=== PATIENT | female | born 1960 | race Two or more races ===

== ENCOUNTER 2018-06-08 12:13 | Emergency (ER) | payer SELFPAY ==
[2018-06-08] MEDS ORDERED: DIPHENHYDRAMINE HCL 25 MG CAPSULE PO ONE (14:16)
[2018-06-08] MEDS ORDERED: METOCLOPRAMIDE HCL 10 MG TABLET PO ONE (14:16)
[2018-06-08] MEDS ORDERED: MECLIZINE HCL 25 MG TABLET PO ONE (14:56)
[2018-06-08] MEDS ORDERED: NORMAL SALINE 1000 ML 1,000 ML IV ONE (14:56)
--- NOTE | 2018-06-08 15:00 | ER Document Report ---
ED General - General Chief Complaint: High Blood Pressure Stated Complaint: BLOOD PRESSURE ISSUES Time Seen by Provider: 06/08/18 14:15 Mode of Arrival: Ambulatory Information source: Patient, Relative Notes: 57-year-old female with hypertension who speaks Mandarin only presents via private vehicle with concerns for fluctuating blood pressure reading. A Mandarin shoe planner has been used to obtain history by myself and my nurse. Patient states that yesterday she had an elevated blood pressure reading of 175/90. She denies any headache yesterday chest pain, shortness of breath. She states that she takes metoprolol and valsartan and doubled her dose today because of the elevated blood pressure. Now she is complaining of feeling dizzy and lightheaded. Patient denies any recent illness, fever, chills, nausea, vomiting, chest pain, shortness of breath, abdominal pain, weakness or slurred speech. TRAVEL OUTSIDE OF THE [place] IN LAST 30 DAYS: No - HPI Onset: Other Quality of pain: No pain Associated symptoms: Other - Dizziness. denies: Chest pain, Headache, Nausea, Vomiting, Shortness of breath Exacerbated by: Denies Relieved by: Denies Similar symptoms previously: Yes Recently seen / treated by doctor: No - Related Data Allergies/Adverse Reactions: No Known Allergies Allergy (Unverified 06/08/18 12:28) Past Medical History - General Information source: Patient - Social History Smoking Status: Never Smoker Frequency of alcohol use: None Drug Abuse: None Lives with: Family Family History: Reviewed & Not Pertinent Patient has suicidal ideation: No Patient has homicidal ideation: No - Past Medical History Cardiac Medical History: Reports: Hx Hypertension Review of Systems - Review of Systems Notes: REVIEW OF SYSTEMS: CONSTITUTIONAL : Denies fever, chills, or sweats. Denies recent illness. Denies weight loss, recent hospitalizations. EENT: Denies visual changes, eye pain. Denies sore throat, oral lesions, difficulty swallowing. CARDIOVASCULAR: Denies chest pain. Denies palpitations. Denies lower extremity edema. RESPIRATORY: Denies cough. Denies shortness of breath, wheezing. GASTROINTESTINAL: Denies abdominal pain or distention. Denies nausea, vomiting, or diarrhea. Denies blood in vomitus, stools, or per rectum. Denies black, tarry stools. Denies constipation. GENITOURINARY: Denies difficulty urinating, painful urination, frequency, blood in urine, or vaginal discharge. MUSCULOSKELETAL: Denies back or neck pain or stiffness. Denies joint pain or swelling. SKIN: Denies rash, lesions or sores. HEMATOLOGIC : Denies easy bruising or bleeding. LYMPHATIC: Denies swollen glands. NEUROLOGICAL: Denies confusion or altered mental status. Denies loss of consciousness. Denies headache. Denies weakness or paralysis. Denies problems difficulty with ambulation, slurred speech. Denies sensory loss, numbness, or tingling. Denies seizures. PSYCHIATRIC: Denies anxiety or stress. Denies depression, suicidal ideation, or homicidal ideation. Denies visual or auditory hallucinations. Physical Exam - Vital signs Vitals: Temp Pulse Resp BP Pulse Ox 98.1 F 57 L 16 125/63 95 06/08/18 12:38 06/08/18 12:38 06/08/18 12:38 06/08/18 12:38 06/08/18 12:38 - Notes Notes: PHYSICAL EXAMINATION: GENERAL: Well-appearing, well-nourished and in no acute distress. HEAD: Atraumatic, normocephalic. EYES: Pupils equal round and reactive to light, extraocular movements intact, conjunctiva are normal. ENT: Nares patent, oropharynx clear without exudates. Moist mucous membranes. TMs normal bilaterally NECK: Normal range of motion, supple without lymphadenopathy LUNGS: Breath sounds clear to auscultation bilaterally and equal. No wheezes rales or rhonchi. HEART: Regular rate and rhythm without murmurs ABDOMEN: Soft, nontender, nondistended abdomen. No guarding, no rebound. No masses appreciated. Female : deferred Musculoskeletal: Normal range of motion, no pitting or edema. No cyanosis. NEUROLOGICAL: Cranial nerves grossly intact. Normal speech, normal gait. Normal sensory, motor exams. NIH 0 PSYCH: Normal mood, normal affect. SKIN: Warm, Dry, normal turgor, no rashes or lesions noted. Course - Re-evaluation Re-evalutation: Laboratory 06/08/18 06/08/18 06/08/18 15:15 15:15 15:15 WBC 4.8 RBC 4.59 Hgb 14.8 Hct 42.7 MCV 93 MCH 32.1 MCHC 34.5 RDW 12.4 Plt Count 217 Seg Neutrophils % 57.1 Lymphocytes % 30.9 Monocytes % 10.3 Eosinophils % 0.9 Basophils % 0.8 Absolute Neutrophils 2.8 Absolute Lymphocytes 1.5 Absolute Monocytes 0.5 Absolute Eosinophils 0.0 Absolute Basophils 0.0 Sodium 137.4 Potassium 4.2 Chloride 100 Carbon Dioxide 31 H Anion Gap 6 BUN 16 Creatinine 0.60 Est GFR ( Amer) > 60 Est GFR (Non-Af Amer) > 60 Glucose 94 Calcium 9.7 Troponin I < 0.012 Urine Color Urine Appearance Urine pH Ur Specific Anderson Urine Protein Urine Glucose (UA) Urine Ketones Urine Blood Urine Nitrite Urine Bilirubin Urine Urobilinogen Ur Leukocyte Esterase Urine RBC (Auto) Urine Mucus (Auto) Urine Ascorbic Acid 06/08/18 15:58 WBC RBC Hgb Hct MCV MCH MCHC RDW Plt Count Seg Neutrophils % Lymphocytes % Monocytes % Eosinophils % Basophils % Absolute Neutrophils Absolute Lymphocytes Absolute Monocytes Absolute Eosinophils Absolute Basophils Sodium Potassium Chloride Carbon Dioxide Anion Gap BUN Creatinine Est GFR ( Amer) Est GFR (Non-Af Amer) Glucose Calcium Troponin I Urine Color COLORLESS Urine Appearance CLEAR Urine pH 6.0 Ur Specific Anderson 1.004 Urine Protein NEGATIVE Urine Glucose (UA) NEGATIVE Urine Ketones NEGATIVE Urine Blood SMALL H Urine Nitrite NEGATIVE Urine Bilirubin NEGATIVE Urine Urobilinogen NEGATIVE Ur Leukocyte Esterase NEGATIVE Urine RBC (Auto) 1 Urine Mucus (Auto) RARE Urine Ascorbic Acid NEGATIVE Temp Pulse Resp BP Pulse Ox 97.8 F 63 16 118/64 97 06/08/18 17:48 06/08/18 17:48 06/08/18 17:48 06/08/18 17:48 06/08/18 17:48 57-year-old female who is Mandarin speaking only and has a history of hypertens ion presents with concern for fluctuating blood pressure. Patient reports elevated blood pressure yesterday which prompted her to take a double dose of her blood pressure medication today (valsartan). Patient reports a low blood pressure reading at urgent care just prior to arrival. Patient states that she is feeling dizzy. Initially thought to have reported headache but on second call to the field laborer states she does not headache. It is extremely difficult to get a history from this patient despite using the Mandarin shoe planner. Patient also takes a combination of Setswana herbs which are not familiar to me. Patient does not have a primary care physician in the [place]. Patient has a normal neurologic and physical exam. CBC, CMP, cardiac enzymes are within normal limits. No evidence of endorgan damage. Patient is orthostatic negative. Likely the patient's complaint of dizziness is secondary to overmedicating herself with her blood pressure medication. Patient did receive IV fluids, meclizine, Reglan. On reevaluation patient has no further complaints. She is requesting a refill on her diuretic which was provided. 06/08/18 15:55 Patient refusing CAT scan due to lack of insurance. 06/09/18 02:03 06/09/18 02:07 Patient was evaluated and treated as appropriate for the patient's presenting symptoms and complaint, with consideration of any critical or life threatening conditions that may be associated with their obtained history and exam as noted above. All results were discussed with patient and her daughter. Patient provided the opportunity to ask questions, and express concerns. Patient was educated on treatments based on their presumed diagnosis as noted above. At this time we will discharge the patient with return precautions and follow-up recommendations. Verbal discharge instructions given a the bedside. Medication warnings reviewed. Patient is in agreement with this plan and has verbalized understanding of return precautions. After careful consideration I feel that that patient can be safely discharged from the emergency department, they were advised to followup with a primary care physician in 2-3 days. Dictation on this chart was performed using voice recognition software and may result in unintended grammatical, spelling, syntax or errors. 06/09/18 02:08 - Vital Signs Vital signs: Temp Pulse Resp BP Pulse Ox 97.8 F 63 16 118/64 97 06/08/18 17:48 06/08/18 17:48 06/08/18 17:48 06/08/18 17:48 06/08/18 17:48 - Laboratory Result Diagrams: 06/08/18 15:15 06/08/18 15:15 Laboratory results interpreted by me: 06/08/18 06/08/18 15:15 15:58 Carbon Dioxide 31 H Urine Blood SMALL H - EKG Interpretation by Nc EKG shows normal: Sinus rhythm Rate: Normal Rhythm: NSR When compared to previous EKG there are: Previous EKG unavailable Discharge - Discharge Clinical Impression: Fluctuating blood pressure, Medication refill, Dizziness Condition: Good Disposition: HOME, SELF-CARE Instructions: Dizziness ([facility]) Additional Instructions: Your labs here today are normal. Your blood pressure is normal. You need to establish primary care. Recommendations: It is recommended to followup with a primary care doctor within the next 2 days. If you do not have a primary care doctor or you are unable to get an apointment during that time, I left the number for some internal medicine physicians that are affiliated with this [facility]. Dr. Edison Escobar [address], [place] [address] [phone] Dr Lincoln Address: [address] [place] [address] [place] [address] Dr Watson Address: [address] [place] [address] , [place] [address] Prescriptions: Indapamide 2.5 mg PO DAILY #14 tablet
[2018-06-08 15:30] LABS: ABSOLUTE LYMPHOCYTES (AUTO) 1.5 10^3/uL (0.5-4.7); ABSOLUTE MONOCYTES (AUTO) 0.5 10^3/uL (0.1-1.4); ABSOLUTE NEUT (AUTO) 2.8 10^3/uL (1.7-8.2); BASOPHILS % (AUTO) 0.8 % (0-2); EOSINOPHILS % (AUTO) 0.9 % (0-6); HEMATOCRIT 42.7 % (36.0-47.0); HEMOGLOBIN 14.8 g/dL (12.0-15.5); LYMPHOCYTES % (AUTO) 30.9 % (13-45); MEAN CORPUSCULAR HEMOGLOBIN 32.1 pg (27.0-33.4); MEAN CORPUSCULAR HGB CONC 34.5 g/dL (32.0-36.0); MEAN CORPUSCULAR VOLUME 93 fl (80-97); MONOCYTES % (AUTO) 10.3 % (3-13); PLATELET COUNT 217 10^3/uL (150-450); RED BLOOD COUNT 4.59 10^6/uL (3.72-5.28); RED CELL DISTRIBUTION WIDTH 12.4 % (11.5-14.0); SEGMENTED NEUTROPHILS % (AUTO) 57.1 % (42-78); TOTAL CELLS COUNTED % (AUTO) 100 %; WHITE BLOOD COUNT 4.8 10^3/uL (4.0-10.5)
[2018-06-08 15:50] LABS: ANION GAP 6 (5-19); BLOOD UREA NITROGEN 16 mg/dL (7-20); CALCIUM 9.7 mg/dL (8.4-10.2); CARBON DIOXIDE 31 mmol/L (22-30); CHLORIDE 100 mmol/L (98-107); GLUCOSE 94 mg/dL (75-110); POTASSIUM 4.2 mmol/L (3.6-5.0); SODIUM 137.4 mmol/L (137-145)
[2018-06-08 16:15] LABS: APPEARANCE,URINE CLEAR; BILIRUBIN,URINE NEGATIVE (NEGATIVE); COLOR,URINE COLORLESS; GLUCOSE, URINE NEGATIVE (NEGATIVE); KETONES,URINE NEGATIVE (NEGATIVE); LEUKOCYTE ESTERASE,URINE NEGATIVE (NEGATIVE); NITRITE,URINE NEGATIVE (NEGATIVE); PROTEIN,URINE NEGATIVE (NEGATIVE); URINE SPECIFIC GRAVITY 1.004; UROBILINOGEN,URINE NEGATIVE mg/dL (<2.0)
[2018-06-08 17:49] VITALS: BP 118/64
--- NOTE | 2018-06-08 20:54 | EKG REPORT ---
SEVERITY:- NORMAL ECG - SINUS RHYTHM NONSPECIFIC ST-T CHANGES : Confirmed by: Corie Martinez 08-Jun-2018 20:52:50
== END 2018-06-08 17:49 | disposition home or self-care (01) ==
LOC: ER 12:13
DX: I99.8 Other disorder of circulatory system (principal); I10 Essential (primary) hypertension; Z79.899 Other long term (current) drug therapy; R42 Dizziness and giddiness; Z76.0 Encounter for issue of repeat prescription
CPT/HCPCS: 36415; 80048; 81001; 84484; 85025; 93005; 93010; 99283